=== PATIENT | male | born 1950 | race Caucasian/White ===

== ENCOUNTER 2016-10-22 09:40 | Emergency (ER) | payer OTHER, MEDICARE ==
[~2016-10-22] VITALS: Ht 182.9 cm; Wt 115.0 kg
[~2016-10-22 09:40] MED LIST: ASPI81 PO; CLEO300C2 PO; FLUO20SO3 PO; LORT7.5T3 PO; ZANTTAB9 PO
[2016-10-22 09:42] VITALS: BP 147/78; PULSE 72; RESP 16; TEMP 98.8; O2SAT 97
[2016-10-22] MEDS ORDERED: VITA10002 PO (09:50)
[2016-10-22] MEDS ORDERED: PROZ40CA PO (09:50)
[2016-10-22] MEDS ORDERED: MULT-65 PO (09:50)
[2016-10-22] MEDS ORDERED: ASPI81CH CHEW (09:50)
--- NOTE | 2016-10-22 10:28 | RADRPT ---
EXAM DATE/TIME: 10/22/2016 10:17 [place] COMPARISON: No previous studies available for comparison. INDICATIONS : Right hand distal 2nd 3rd and 4th posterior finger laceration, cut with table saw MEDICAL HISTORY : None. SURGICAL HISTORY : None. ENCOUNTER: Initial ACUITY: 1 day PAIN SCORE: 8/10 LOCATION: Right Hand FINDINGS: There is a complete fracture of the third middle phalanx distally with multiple tiny bony fragments a t this site towards the dorsal aspect near the DIP joint. There also multiple tiny bony fragments inv olving the second and fourth DIP joints dorsally may be tiny avulsions related to laceration injury. CONCLUSION: Multiple tiny bony fragments dorsal to the second third and fourth PIP joints with fracture of the se cond middle phalanx distally. Osito Sherman MD on October 22, 2016 at 10:24 Board Certified Radiologist. This report was verified electronically.
[2016-10-22] MEDS ORDERED: LIDOCAINE HCL 1% 50 ML VIAL ONE (10:38)
[2016-10-22] MEDS ORDERED: LIDOCAINE HCL 1% PF 30 ML VIAL INFIL ONE (10:45)
--- NOTE | 2016-10-22 11:25 | PD ---
HPI Chief Complaint: Laceration/Skin Injury Time Seen by Provider: 09:58 Travel History International Travel<30 days: No Contact w/Intl Traveler<30days: No Traveled to known affect area: No History of Present Illness HPI This is a 65-year-old male who presents to the emergency department having injured his right hand with a table saw. He is unable to stretch out his right third finger completely. His pain is moderate severity, constant, with no associated numbness. He has no other injuries. PFSH Past Medical History Depression: Yes Tetanus Vaccination: > 5 Years Influenza Vaccination: No Past Surgical History Abdominal Surgery: Yes (HERNIA REPAIR X 3) Appendectomy: Yes Cholecystectomy: Yes Other Surgery: Yes (left thumb amputation) Social History Alcohol Use: No Tobacco Use: No Substance Use: No Allergies-Medications (Allergen,Severity, Reaction): Uncoded Allergies: SODIUM PENTHOL (Allergy, Severe, N/V, 08/23/07) Reported Meds & Prescriptions Reported Meds & Active Scripts Active Reported Vitamin B-12 (Cyanocobalamin) 1,000 Mcg Tab 1,000 Mcg PO DAILY Multi-Vitamin Daily (Multiple Vitamin) 1 Tab Tab 1 Tab PO DAILY Aspirin 81 Mg Chew 81 Mg CHEW DAILY Prozac (Fluoxetine HCl) 40 Mg Cap 40 Mg PO DAILY Review of Systems General / Constitutional: No: Fever, Chills Cardiovascular: No: Chest Pain or Discomfort Physical Exam Narrative GENERAL: Well-appearing, no acute distress, nontoxic SKIN: Right third digit is held in a flexed position at the DIP. There is a laceration over the third DIP, second DIP and at the fourth nail bed and proximal adjacent to the fourth PIP all on the dorsal aspect of the hand. HEAD: Atraumatic. Normocephalic. ENT: No nasal bleeding or discharge. Moist mucous membranes MUSCULOSKELETAL: Unable to extend the third digit at the DIP. Vascular: Normal capillary refill of the third digit. NEUROLOGICAL: Awake and alert. No obvious cranial nerve deficits. Motor grossly within normal limits. Normal speech. PSYCHIATRIC: Appropriate mood and affect; insight and judgment normal. Data Data Last Documented VS Vital Signs Date Time Temp Pulse Resp B/P (MAP) Pulse Ox O2 Delivery O2 Flow Rate FiO2 10/22/16 09:42 98.8 72 16 147/78 (101) 97 Room Air Orders Orders Hand, Complete ([id number]) (10/22/16 ) Lidocaine Pf 1% Inj (Xylocaine-Mpf 1% In (10/22/16 10:45) Lidocaine 1% Inj (50 Ml) (Xylocaine 1% I (10/22/16 10:38) Gelatin 12 Mm/7 Mm Top (Gelfoam 12 Mm/7 (10/22/16 12:00) MDM Medical Decision Making Medical Screen Exam Complete: Yes Emergency Medical Condition: Yes Interpretation(s) Afebrile, no tachycardia, hypertensive Last 24 hours Impressions Hand X-Ray 10/22/16 0000 Signed Impressions: Service Date/Time: October 10:17 - CONCLUSION: Multiple tiny bony fragments dorsal to the second third and fourth PIP joints with fracture of the second middle phalanx distally. Osito Sherman MD Differential Diagnosis Extensor tendon injury, flexor tendon injury, phalangeal fracture, vascular injury Narrative Course This is a 65-year-old male who presents to the emergency department having had a table saw injury to his right hand. He has lacerations of the second, third and fourth digits with a fracture of the third middle phalanx and extensor tendon injury at the DIP. I discussed the patient with Dr. Piña. She recommended repair at the bedside and follow-up in clinic. Patient did have an area on the third finger distal to the joint which has about a centimeter of skin avulsion which was difficult to repair and will likely have significant scarring. This was discussed with both the patient and Dr. Piña. Patient was placed in a splint and will follow up with hand surgery in clinic. Diagnosis Primary Impression: Laceration of multiple sites of right hand and fingers Qualified Codes: S61.411A - Laceration without foreign body of right hand, initial encounter; S61.219A - Laceration without foreign body of unspecified finger without damage to nail, initial encounter Additional Impression: Extensor tendon disruption Referrals: Liya Piña MD Patient Instructions: General Instructions Additional Instructions: If you develop fevers, chills, redness, swelling, coolness or numbness of your fingers return to the emergency department. Follow up with Dr. Piña in clinic as soon as possible without fail. Med/Other Pt SpecificInfo: Prescription(s) given Scripts Tramadol (Tramadol) 50 Mg Tab 50 MG PO Q6H Y for PAIN, #15 TAB 0 Refills Prov: Gogo Cote MD 10/22/16 Cephalexin (Keflex) 500 Mg Cap 500 MG PO Q12H for Infection for 7 Days, CAP 0 Refills Prov: Gogo Cote MD 10/22/16 Disposition: 01 DISCHARGE HOME Condition: Stable Gogo Cote MD Oct 22, 2016 11:25
--- NOTE | 2016-10-22 11:53 | PD ---
Physical Exam Time Seen by Provider: 11:00 Data Data Last Documented VS Vital Signs Date Time Temp Pulse Resp B/P (MAP) Pulse Ox O2 Delivery O2 Flow Rate FiO2 10/22/16 09:42 98.8 72 16 147/78 (101) 97 Room Air Orders Orders Hand, Complete ([id number]) (10/22/16 ) Lidocaine Pf 1% Inj (Xylocaine-Mpf 1% In (10/22/16 10:45) Lidocaine 1% Inj (50 Ml) (Xylocaine 1% I (10/22/16 10:38) Gelatin 12 Mm/7 Mm Top (Gelfoam 12 Mm/7 (10/22/16 12:00) MDM Medical Record Reviewed: Yes Supervised Visit with SUHAIL: No Narrative Course This patient presents with a table saw injury to the right hand dorsal second third and fourth fingers, assessed repair the lacerations. The patient verbally consents. Prior to laceration repair the wounds were thoroughly irrigated with normal saline. The wounds were repaired as best as possible. There is one 1 cm area of cutaneous defect on the dorsal right third finger overlying the DIP joint which was unable to be approximated given the avulsed tissue. Procedures Procedure Narrative LACERATION LOCATION: Dorsal right second finger LENGTH: 2 cm NUMBER OF STITCHES/ROSEANN: 6 REPAIR: The area of the laceration was prepped with Betadine and sterilely draped. The laceration was infiltrated with 1% lidocaine digital block. The wound was copiously irrigated and explored. The wound was closed using 5-0 prolene simple interrupted This was a single layer repair. A sterile dressing was applied. The patient was advised to keep the dressing clean and dry. Patient tolerated the procedure well. LACERATION LOCATION: Dorsal right second finger LENGTH: 3 cm NUMBER OF STITCHES/ROSEANN: 7 REPAIR: The area of the laceration was prepped with Betadine and sterilely draped. The laceration was infiltrated with 1% lidocaine digital block. The wound was copiously irrigated and explored. The wound was closed using 4-0 prolene simple interrupted This was a single layer repair. A sterile dressing was applied. The patient was advised to keep the dressing clean and dry. Patient tolerated the procedure well. LACERATION LOCATION: Dorsal right second finger LENGTH: 4 cm NUMBER OF STITCHES/ROSEANN: 5 REPAIR: The area of the laceration was prepped with Betadine and sterilely draped. The laceration was infiltrated with 1% lidocaine digital block. The wound was copiously irrigated and explored. The wound was closed using 5-0 prolene simple interrupted This was a single layer repair. A sterile dressing was applied. The patient was advised to keep the dressing clean and dry. Patient tolerated the procedure well. Bernard Devlin Oct 22, 2016 11:53
[2016-10-22] MEDS ORDERED: GELATIN 12 MM/7 MM FOAM TOPICAL ONE (12:00)
[2016-10-22] MEDS ORDERED: CEPH-460 PO (12:05)
[2016-10-22] MEDS ORDERED: TRAM50TA PO (12:05)
[2016-10-22] MEDS ORDERED: TETANUS/DIPHTHERIA TOXOID ADULT 0.5 ML VIAL IM ONE (12:15)
== END 2016-10-22 13:02 | disposition home or self-care (01) ==
LOC: NEPD 09:40
DX: S62.632B Displaced fracture of distal phalanx of right middle finger, initial encounter for open fracture (principal); S61.210A Laceration without foreign body of right index finger without damage to nail, initial encounter; S61.214A Laceration without foreign body of right ring finger without damage to nail, initial encounter; W31.2XXA Contact with powered woodworking and forming machines, initial encounter; Z23 Encounter for immunization
CPT/HCPCS: 12004; 73130; 90471; 90714